=== PATIENT | male | born 1950 | race Caucasian/White ===

== ENCOUNTER → 2021-12-07 12:59 | Outpatient (CLI) | payer MEDICARE, SELFPAY ==
--- NOTE | 2021-12-07 13:07 | DI.RAD.S_ITS ---
PROCEDURE: XR LUMBAR SPINE MIN 4V INDICATIONS: BACK PAIN TECHNIQUE: 5 views of the lumbar spine were acquired, including bilateral oblique views. COMPARISON: None. FINDINGS: Bones: Mild convex right thoracolumbar scoliosis. Bilateral hip prosthesis present. There is wedge-shaped L1 compression fracture with 50% anterior height loss present. Grade 1 degenerative anterior spondylolisthesis at L4-5. Diffuse disc space narrowing and facet arthropathy particularly noted in the lower lumbar spine. Soft tissues: Cholelithiasis noted. Nonobstructive bowel gas pattern Oblique images: No pars defects. IMPRESSION: Degenerative disc disease and arthropathy results in thoracolumbar dextroscoliosis. Degenerative grade 1 anterior spondylolisthesis L4-5 L1 compression fracture, uncertain age Approved by: Edmund Gonzáles M.D. on 12/07/2021 at 13:18
== END ==
PROVIDERS: Referring Provider Physical Medicine & Rehabilitation; Visit Provider Physical Medicine & Rehabilitation
DX: M47.816 Spondylosis without myelopathy or radiculopathy, lumbar region (principal); M51.36 Other intervertebral disc degeneration, lumbar region; M51.26 Other intervertebral disc displacement, lumbar region; M96.1 Postlaminectomy syndrome, not elsewhere classified; M41.9 Scoliosis, unspecified; M48.56XA Collapsed vertebra, not elsewhere classified, lumbar region, initial encounter for fracture; M43.16 Spondylolisthesis, lumbar region; M54.9 Dorsalgia, unspecified; Z98.890 Other specified postprocedural states
CPT/HCPCS: 72110; 99214

== ENCOUNTER 2021-12-27 14:04 | Outpatient (CLI) | payer MEDICARE, SELFPAY ==
--- NOTE | 2021-12-27 14:05 | DI.RAD.S_ITS ---
PROCEDURE: PAIN L/SI FACET INJ/BLK 1STL INDICATIONS: SPONDYLOSIS COMPARISON: [facility], CR, XR LUMBAR SPINE MIN 4V, 12/07/2021, 13:20. FINDINGS: Fluoroscopic spot filming was performed to verify placement of spinal needles on the left at the L4-L5 and L5-S1 levels, as labeled on the films. Appropriate location of the needle tips was confirmed by injection of iodinated contrast. IMPRESSION: Intraprocedural examination demonstrating appropriate positions of the needles. Dictated by: Ra Jamil M.D. on 12/27/2021 at 15:02 Approved by: Ra Jamil M.D. on 12/27/2021 at 15:03
[2021-12-27 14:18] VITALS: BP 172/71; PULSE 60; RESP 16; TEMP 36.8; O2SAT 99
[2021-12-27 14:57] VITALS: BP 179/86; PULSE 65; RESP 16; O2SAT 99
[2021-12-27 15:02] VITALS: BP 176/82; PULSE 61; RESP 15; O2SAT 100
[2021-12-27] MEDS: IOPAMIDOL 15 ML VIAL 3 ML INJ (15:03)
[2021-12-27] MEDS: BETAMETHASONE 30 MG/5 ML MDV 12 MG INJ (15:03)
[2021-12-27] MEDS: BUPIVACAINE 0.5% MDV 5 ML SUBCUT (15:04)
[2021-12-27 15:06] VITALS: BP 180/76; PULSE 76; RESP 16; O2SAT 100
--- NOTE | 2021-12-27 15:09 | PM.PROC.IR.1 ---
Date/Time/Diagnoses Date of procedure: 12/27/21 Time of procedure: 15:09 Pre-procedure diagnosis: 1. FACET ARTHROPATHY, 2. AXIAL LBP, 3. MULTILEVEL DDD Post-procedure diagnosis: same Procedure Notes Procedure: 1. FLUOROSCOPICALLY GUIDED CONTRAST CONTROLLED FACET JOINT INJECTIONS LEFT L4/5, L5/S1 Indications: Reji is referred by Dr. Mcdaniels for treatment of Axial LBP Physician: Brayan Ramos Total Fluoroscopy time (seconds): 9 Total sedation minutes: 0 Complications: none Procedure in detail & Post-procedure care: FINDINGS Multilevel Facet Arthropathy with Clinically significant axial LBP DESCRIPTION OF PROCEDURE Fluoroscopically guided, contrast-controlled left L4/5, L5/S1 facet joint injections. Following review of allergy and review of potential side effects and complications, including, but not necessarily limited to, infection, allergic reaction, local tissue breakdown, stroke, temporary or permanent nerve injury, paralysis, and possible , the patient indicated that the patient understood and agreed to proceed. An informed consent document was signed by the patient, witnessed by a nurse, and placed in the patient's chart. Additionally, other treatment options including medications, modalities, and physical therapy were reviewed with the patient. After review of previous anaesthesic history and IV conscious sedation the patient was deemed safe to proceed with today?s procedure with IV conscious sedation as ASA class II designation. Safety time-out was performed to confirm patient ID, procedure to be performed and site of procedure. IV sedation was deemed unnecessary and thus not administered by the RN after DO order, titrated to patient comfort during the course of the procedure while the patient remained responsive to all verbal commands. In the prone position, following sterile prep and drape of the lumbar region, the posterior aspect of the left L4/5, L5/S1 facet joints were identified fluoroscopically. The skin was anesthetized via a 25-gauge 1.5-inch needle with 1% lidocaine solution into the corresponding facet joints. At this point, a 22-gauge 3.5-inch spinal needle was atraumatically introduced and advanced under fluoroscopic guidance into the corresponding facet joints. Following negative aspiration, injections of approximately 0.2-cc of Isovue 200 confirmed interarticular placement without vascular uptake. Radiological data, including multiple fluoroscopic views of the lumbosacral spine, reveal a spinal needle at the left L4/5, L5/S1 facet joints. Subsequent views show flow of contrast material both superiorly and inferiorly within the joint space without vascular or intrathecal uptake. At this point, a total of 0.5 cc including a mixture of 0.25cc Marcaine and 0.25cc betamethasone was injected without complication into each of the corresponding facet joints. The procedure tolerated the procedure well without signs or symptoms of complications prior to transfer to the recovery area continued monitoring without incident. The patient was then transferred to the recovery area where they were observed for an appropriate period of time after the injection. The patient reported a VAS score of 7 prior to the procedure and a post-procedure VAS of 0. POST OP INSTRUCTIONS The patient was provided a Pain Log to continue to record their response to the target-specific procedure prior to follow-up visit with their referring physician. Additionally, specific post-injection care instructions and a contact number to our office were provided if concerns arise regarding possible complications associated with the procedure are suspected.
[2021-12-27 15:10] VITALS: BP 186/80; PULSE 65; RESP 20; O2SAT 98
== END 2021-12-27 15:17 | disposition home or self-care (01) ==
LOC: RAD 14:04
PROVIDERS: PCP Family Medicine; Referring Provider Physical Medicine & Rehabilitation; Visit Provider Physical Medicine & Rehabilitation
DX: M47.816 Spondylosis without myelopathy or radiculopathy, lumbar region (principal); M47.817 Spondylosis without myelopathy or radiculopathy, lumbosacral region; M51.36 Other intervertebral disc degeneration, lumbar region; M51.37 Other intervertebral disc degeneration, lumbosacral region
CPT/HCPCS: 64493; 64494; J0702

== ENCOUNTER 2022-04-20 09:30 | Outpatient (CLI) | payer MEDICARE, SELFPAY ==
[2022-04-20] VITALS (7 sets, daily range): BP systolic 125–167; BP diastolic 57–75; PULSE 54–60; RESP 13–20; TEMP 36.9; O2SAT 95–98
--- NOTE | 2022-04-20 09:31 | DI.RAD.S_ITS ---
PROCEDURE: PAIN L/SI FACET INJ/BLK 1STL INDICATIONS: SPONDYLSIS COMPARISON: [facility], , PAIN L/SI FACET INJ/BLK 1STL, 12/27/2021, 16:00. FINDINGS: Fluoroscopic spot filming was performed to verify placement of spinal needles on the left at the L4, L5, and S1 levels, as labeled on the films. Appropriate location of the needle tips was confirmed by injection of iodinated contrast. IMPRESSION: Intraprocedural examination demonstrating appropriate positions of the needles. Dictated by: Ra Jamil M.D. on 04/20/2022 at 13:40 Approved by: Ra Jamil M.D. on 04/20/2022 at 13:41
[2022-04-20] MEDS: MIDAZOLAM 2 MG/2 ML VIAL IV (10:53)
[2022-04-20] MEDS: LIDOCAINE 1% 20 ML INJ (11:00)
[2022-04-20] MEDS: IOPAMIDOL 15 ML VIAL 3 ML INJ (11:01)
[2022-04-20] MEDS: BUPIVACAINE 0.5% (PF) 10 ML VIAL 2 ML INJ (11:01)
--- NOTE | 2022-04-20 11:07 | PM.PROC.IR.1 ---
Date/Time/Diagnoses Date of procedure: 04/20/22 Time of procedure: 11:08 Pre-procedure diagnosis: 1. FACET ARTHROPATHY Post-procedure diagnosis: same Procedure Notes Procedure: 1. Left L4, L5 and S1 MB BLOCKS LA Indications: Reji is referred by Dr. Mcdaniels for treatment of Left Axial LBP. Physician: Brayan Ramos Total Fluoroscopy time (seconds): 6 Total sedation minutes: 9 Complications: none Procedure in detail & Post-procedure care: DESCRIPTION OF PROCEDURE Fluoroscopically guided, contrast-controlled left L4, L5 and S1 medial branch blocks with 0.5cc of 0.5% Marcaine. Following review of allergy and review of potential side effects and complications, including, but not necessarily limited to, infection, allergic reaction, local tissue breakdown, nerve injury, paralysis, stroke and possible , the patient indicated that the patient understood and agreed to proceed. An informed consent document was signed by the patient, witnessed by a nurse, and placed in the patient's chart. After review of previous anaesthesic history and IV conscious sedation the patient was deemed safe to proceed with today?s procedure with IV conscious sedation as ASA class II designation. Safety time-out was performed to confirm patient ID, procedure to be performed and site of procedure. IV sedation was accomplished with a combination of 2mg of Versed was administered by the RN after DO order, titrated to patient comfort during the course of the procedure while the patient remained responsive to all verbal commands. In the prone position, following sterile prep and drape of the lumbar region, the left L4, L5 and S1 anatomical location of the medial branch of the dorsal ramus was identified fluoroscopically. Subsequently an anesthetic skin wheal using 1% lidocaine solution was initiated at each of the anatomical spots. Subsequently then a 22-gauge 3.5-inch spinal needle was atraumatically introduced and advanced under fluoroscopic guidance at each of the corresponding sites at the left L4, L5 and S1 MB. After negative aspiration, 0.2cc of Isovue 200 was injected, confirming placement without vascular or intrathecal uptake. Subsequently then 0.5cc of 0.5% Marcaine solution was injected at each of the corresponding sites at the left L4, L5 and S1 medial branch locations. The patient tolerated the procedure well without signs or symptoms of complications. The patient tolerated the procedure well without signs or symptoms of complications prior to transfer to the recovery area continued monitoring without incident. Post-procedure, the patient was monitored initiating provocative activities to measure the amount of relief from block of the facetogenic pain. The patient reported a VAS of 7 prior to the procedure and a post-procedure VAS of 1. It has been a pleasure to assist in the diagnostic and therapeutic care of your patient. POST OP INSTRUCTIONS The patient was provided with a Pain Log to complete over the next several hours and subsequent days prior to the patient's follow up with the ordering physician. If the patient has heat and frost insulator relief to the solution applied, then they may be a candidate for medial branch rhizotomy. The patient is aware, was provided, once again, with a Pain Log and will follow up with the referring physician for review and clinical correlation.
== END 2022-04-20 11:30 | disposition home or self-care (01) ==
PROVIDERS: PCP Family Medicine; Referring Provider Physical Medicine & Rehabilitation; Visit Provider Physical Medicine & Rehabilitation
DX: M47.816 Spondylosis without myelopathy or radiculopathy, lumbar region (principal); M47.817 Spondylosis without myelopathy or radiculopathy, lumbosacral region
CPT/HCPCS: 64493; 64494; J2250

== ENCOUNTER → 2022-07-26 15:25 | Outpatient (CLI) | payer MEDICARE, SELFPAY ==
--- NOTE | 2022-07-26 15:26 | DI.RAD.S_ITS ---
PROCEDURE: XR KNEE RT 3V INDICATIONS: RIGHT KNEE DEGENERATIVE JOINT DISEASE TECHNIQUE: 3 views of the knee were acquired. COMPARISON: None. FINDINGS: Bones: No fractures or dislocations. No suspicious bony lesions. Mild tricompartmental osteoarthritis. Soft tissues: Moderate joint effusion is suspected. There is a corticated ossicle adjacent to the lateral femoral condyle. IMPRESSION: 1. A corticated ossicle adjacent to the lateral femoral condyle, likely sequelae of old injury. 2. Mild tricompartmental osteoarthritis. 3. Moderate knee joint effusion. Dictated by: Merlene Lynn M.D. on 07/26/2022 at 17:02 Approved by: Merlene Lynn M.D. on 07/26/2022 at 17:04
== END ==
PROVIDERS: PCP Family Medicine; Referring Provider Physical Medicine & Rehabilitation; Visit Provider Physical Medicine & Rehabilitation
DX: M17.11 Unilateral primary osteoarthritis, right knee (principal); M25.461 Effusion, right knee; M41.26 Other idiopathic scoliosis, lumbar region; M96.1 Postlaminectomy syndrome, not elsewhere classified; M47.816 Spondylosis without myelopathy or radiculopathy, lumbar region; H91.93 Unspecified hearing loss, bilateral; Z98.890 Other specified postprocedural states
CPT/HCPCS: 73562; 99214

== ENCOUNTER 2022-10-31 15:00 | Outpatient (CLI) | payer MEDICARE, SELFPAY ==
[2022-10-31] VITALS (9 sets, daily range): BP systolic 105–191; BP diastolic 56–79; PULSE 51–64; RESP 16–20; TEMP 36.5; O2SAT 96–99
--- NOTE | 2022-10-31 15:02 | DI.RAD.S_ITS ---
PROCEDURE: PAIN L/S TRANSFORAMINAL INJECT INDICATIONS: SPONDYLOSIS COMPARISON: None. FINDINGS: Fluoroscopic spot filming was performed to verify placement of spinal needles at the right L4-L5 neural foramen level(s), as labeled on the films. Appropriate location(s) of the needle tip(s) was confirmed by injection of iodinated contrast. IMPRESSION: Access needle at the right L4-L5 neural foramen for transforaminal epidural steroid injection. Dictated by: Callie De Jesus MD, PhD on 10/31/2022 at 16:27 Approved by: Callei De Jesus MD, PhD on 10/31/2022 at 16:27
[2022-10-31] MEDS: MIDAZOLAM 2 MG/2 ML VIAL IV (15:57)
[2022-10-31] MEDS: DEXAMETHASONE 10 MG/ML VIAL INJ (16:02)
[2022-10-31] MEDS: IOPAMIDOL 15 ML VIAL 3 ML INJ (16:02)
[2022-10-31] MEDS: BETAMETHASONE 30 MG/5 ML MDV 6 MG INJ (16:02)
--- NOTE | 2022-10-31 16:16 | P.PCN_ITS ---
Date/Time/Diagnoses Date of procedure: 10/31/22 Time of procedure: 16:16 Pre-procedure diagnosis: 1. FORAMINAL STENOSIS WITH LE SYMPTOMS Post-procedure diagnosis: same Procedure Notes Procedure: 1. FLUOROSCOPICALLY GUIDED CONTRAST CONTROLLED TRANSFORAMINAL EPIDURAL STEROID INJECTION - RIGHT L4/5 TFESI Indications: Reji is referred by Dr. Mcdaniels for treatment of Foraminal Stenosis with Right LE Symptoms Physician: Brayan Ramos Total Fluoroscopy time (seconds): 8 Total sedation minutes: 15 Complications: none Procedure in detail & Post-procedure care: FINDINGS Foraminal Nerve Root Compression secondary to disc disease and facet hypertrophy DESCRIPTION OF PROCEDURE Following review of allergy and review of potential side effects and complications, including, but not necessarily limited to, infection, allergic reaction, local tissue breakdown, stroke, temporary or permanent nerve injury, paralysis, and possible , the patient indicated that the patient understood and agreed to proceed. An informed consent document was signed by the patient, witnessed by a nurse, and placed in the patient's chart. Additionally, other treatment options including medications, modalities, and physical therapy were reviewed with the patient. After review of previous anaesthesic history and IV conscious sedation the patient was deemed safe to proceed with today?s procedure with IV conscious sedation as ASA class II designation. Safety time-out was performed to confirm patient ID, procedure to be performed and site of procedure. IV sedation was accomplished with a combination of 2mg of Versed was administered by the RN after DO order, titrated to patient comfort during the course of the procedure while the patient remained responsive to all verbal commands In the prone position following sterile prep and drape of the lumbar region, the right L4/5 posterior neuroforamen was identified fluoroscopically. The skin was anesthetized via a 25-gauge 1.5-inch needle with 1% lidocaine solution. At this point, a 25-gauge 3.5-inch spinal needle was atraumatically introduced and advanced under fluoroscopic guidance through the posterior right L4/5 neuroforamen to approximately the anterior aspect of the canal. Depth was confirmed on lateral view. Following negative aspiration, injection of approximately 1.5cc of Isovue 200 under live fluoroscopy in the AP view con firmed excellent flow along the nerve root, into the epidural space without vascular or intrathecal uptake observed Radiological data, including multiple fluoroscopic views of the lumbosacral spine, reveal a spinal needle at the right L4/5 posterior neuroforamen. Subsequent views show flow of contrast material flowing superiorly and inferiorly along the nerve root confirming epidural flow. Subsequently, a test dose of 1.5 cc of 1% lidocaine solution was administered and patient was observed for two minutes for signs or symptoms of complications, including abdominal pain, shortness of breath, bilateral upper or lower extremity weakness, nausea and vomiting, prior to steroid injection. At this point, a total of 2cc or 10mg of dexamethasone and 6mg of betamethasone was injected without incident. The procedure tolerated the procedure well without signs or symptoms of complications prior to transfer to the recovery area continued monitoring without incident. The patient was then transferred to the recovery area where they were observed for an appropriate time after the injection. The patient reported a VAS score of 7 prior to the procedure and a post- procedure VAS of 1. POST OP INSTRUCTIONS The patient was provided a Pain Log to continue to record their response to the target-specific procedure prior to follow-up visit with their referring p hysician. Additionally, specific post-injection care instructions and a contact number to our office were provided if concerns arise regarding possible complications associated with the procedure are suspected.
== END 2022-10-31 16:35 | disposition home or self-care (01) ==
PROVIDERS: PCP Family Medicine; Referring Provider Physical Medicine & Rehabilitation; Visit Provider Physical Medicine & Rehabilitation
DX: M48.061 Spinal stenosis, lumbar region without neurogenic claudication (principal); M51.16 Intervertebral disc disorders with radiculopathy, lumbar region; M47.26 Other spondylosis with radiculopathy, lumbar region
CPT/HCPCS: 64483; 99152; J0702; J1100; J2250

== ENCOUNTER 2023-02-08 08:15 | Outpatient (CLI) | payer MEDICARE, SELFPAY ==
[2023-02-08] VITALS (8 sets, daily range): BP systolic 132–172; BP diastolic 62–77; PULSE 52–60; RESP 12–16; TEMP 36.2; O2SAT 96–99
--- NOTE | 2023-02-08 08:45 | DI.RAD.S_ITS ---
PROCEDURE: PAIN L/SI FACET INJ/BLK 1STL INDICATIONS: LUMBAR ARTHROPATHY COMPARISON: [facility], , PAIN L/SI FACET INJ/BLK 1STL, 04/20/2022, 11:56. FINDINGS: Fluoroscopic spot filming was performed to verify placement of spinal needles at the left L4, L5 and S1 level(s), as labeled on the films. Appropriate location(s) of the needle tip(s) was confirmed by injection of iodinated contrast. IMPRESSION: Intra procedural examination demonstrating appropriate positions of the needles. Dictated by: Fredi Gudino M.D. on 02/08/2023 at 10:02 Approved by: Fredi Gudino M.D. on 02/08/2023 at 10:03
[2023-02-08] MEDS: MIDAZOLAM 2 MG/2 ML VIAL IV (09:10)
[2023-02-08] MEDS: iopamidoL 15 ML VIAL 3 ML INJ (09:14)
[2023-02-08] MEDS: LIDOCAINE 2% INJ SDV 5ML 5 ML INJ (09:15)
--- NOTE | 2023-02-08 09:24 | PM.PROC.IR.1 ---
Date/Time/Diagnoses Date of procedure: 02/08/23 Time of procedure: 09:24 Pre-procedure diagnosis: FACET ARTHROPATHY Post-procedure diagnosis: same Procedure Notes Procedure: 1. Left L4, L5 and S1 MB BLOCKS SA Indications: Reji is referred by Dr. Mcdaniels for treatment of Left Axial LBP. Physician: Brayan Ramos Total Fluoroscopy time (seconds): 8 Total sedation minutes: 10 Complications: none Procedure in detail & Post-procedure care: DESCRIPTION OF PROCEDURE Fluoroscopically guided, contrast-controlled left L4, L5 and S1 medial branch blocks with 0.5cc of 2% Lidocaine. Following review of allergy and review of potential side effects and complications, including, but not necessarily limited to, infection, allergic reaction, local tissue breakdown, nerve injury, paralysis, stroke and possible , the patient indicated that the patient understood and agreed to proceed. An informed consent document was signed by the patient, witnessed by a nurse, and placed in the patient's chart. After review of previous anaesthesic history and IV conscious sedation the patient was deemed safe to proceed with today?s procedure with IV conscious sedation as ASA class II designation. Safety time-out was performed to confirm patient ID, procedure to be performed and site of procedure. IV sedation was accomplished with a combination of 2mg of Versed was administered by the RN after DO order, titrated to patient comfort during the course of the procedure while the patient remained responsive to all verbal commands. In the prone position, following sterile prep and drape of the lumbar region, the left L4, L5 and S1 anatomical location of the medial branch of the dorsal ramus was identified fluoroscopically. Subsequently an anesthetic skin wheal using 1% lidocaine solution was initiated at each of the anatomical spots. Subsequently then a 22-gauge 3.5-inch spinal needle was atraumatically introduced and advanced under fluoroscopic guidance at each of the corresponding sites at the left L4, L5 and S1 MB. After negative aspiration, 0.2cc of Isovue 200 was injected, confirming placement without vascular or intrathecal uptake. Subsequently then 0.5cc of 2% Lidocaine solution was injected at each of the corresponding sites at the left L4, L5 and S1 medial branch locations. The patient tolerated the procedure well without signs or symptoms of complications. The patient tolerated the procedure well without signs or symptoms of complications prior to transfer to the recovery area continued monitoring without incident. Post-procedure, the patient was monitored initiating provocative activities to measure the amount of relief from block of the facetogenic pain. The patient reported a VAS of 7 prior to the procedure and a post-procedure VAS of 1. It has been a pleasure to assist in the diagnostic and therapeutic care of your patient. POST OP INSTRUCTIONS The patient was provided with a Pain Log to complete over the next several hours and subsequent days prior to the patient's follow up with the ordering physician. If the patient has metal mixer relief to the solution applied, then they may be a candidate for medial branch rhizotomy. The patient is aware, was provided, once again, with a Pain Log and will follow up with the referring physician for review and clinical correlation.
== END 2023-02-08 09:40 | disposition home or self-care (01) ==
LOC: RAD 08:16
PROVIDERS: PCP Family Medicine; Referring Provider Physical Medicine & Rehabilitation; Visit Provider Physical Medicine & Rehabilitation
DX: M47.816 Spondylosis without myelopathy or radiculopathy, lumbar region (principal); M47.817 Spondylosis without myelopathy or radiculopathy, lumbosacral region
CPT/HCPCS: 64493; 64494; 99152; J2250

== ENCOUNTER 2023-04-03 07:23 | Outpatient (CLI) | payer MEDICARE, SELFPAY ==
[2023-04-03] VITALS (10 sets, daily range): BP systolic 112–153; BP diastolic 54–67; PULSE 53–60; RESP 12–40; TEMP 36.6; O2SAT 95–99
--- NOTE | 2023-04-03 08:00 | DI.RAD.S_ITS ---
PROCEDURE: PAIN L/S MED/LAT N RFA INDICATIONS: SPONDYLOSIS COMPARISON: None. FINDINGS: Fluoroscopic spot filming was performed to verify placement of spinal needles at the left L4, L5 and S1 level(s), as labeled on the films. Appropriate location(s) of the needle tip(s) was confirmed by injection of iodinated contrast. IMPRESSION: Fluoro guidance was provided intraoperatively for left-sided L4, L5 and S1 medial branch block performed by the ordering physician. Dictated by: Edmundo Up M.D. on 04/03/2023 at 10:27 Approved by: Edmundo Up M.D. on 04/03/2023 at 10:27
[2023-04-03] MEDS: MIDAZOLAM 2 MG/2 ML VIAL IV (08:04)
[2023-04-03] MEDS: LIDOCAINE 1% 20 ML 5 ML INJ (08:14)
[2023-04-03] MEDS: BUPIVACAINE 0.5% (PF) 10 ML VIAL 5 ML INJ (08:14)
--- NOTE | 2023-04-03 08:40 | P.PCN_ITS ---
Date/Time/Diagnoses Date of procedure: 04/03/23 Time of procedure: 08:40 Pre-procedure diagnosis: 1. RECALCITRANT FACET ARTHROPATHY Post-procedure diagnosis: same Procedure Notes Procedure: 1. LEFT L4 AND L5 MEDIAL BRANCH RADIOFREQUENCY NEUROTOMY AND LEFT S1 DORSAL RAMUS RADIOFREQUENCY NEUROTOMY, Indications: Reji is referred by Dr. Mcdnaiels for treatment of facet arthropathy. Physician: Brayan Ramos Total Fluoroscopy time (seconds): 10 Total sedation minutes: 29 Complications: none Procedure in detail & Post-procedure care: DESCRIPTION OF PROCEDURE Left L4 and L5 medial branch radiofrequency neurotomy and left S1 dorsal ramus branch radiofrequency neurotomy under fluoroscopy with conscious sedation. The patient is well known to this clinic having undergone previous facet injections with good but temporary relief. The patient has experienced appropriate, concordant relief with previous facet and median branch blocks but the patient's pain has been recalcitrant to further conservative measures. Therefore, based upon the patient's relief and persistent symptoms, the patient is considered an appropriate candidate for facet rhizotomy. All of the patient's questions regarding the risks versus benefits of the procedure, including, but not limited to, bleeding, infection, temporary as well as lasting nerve injury, paralysis, stroke, and , as well treatment alternatives were answered to satisfaction. After obtaining informed consent, denial of pertinent drug allergies, as well as being made aware of the potential risks of bleeding, infection, spinal cord trauma, paralysis, temporary and permanent nerve damage, seizure, stroke, and possible , the patient was brought to the fluoroscopy suite and positioned prone on the fluoroscopy table. The lumbar region was prepped with Betadine and covered with a fenestrated drape in the usual sterile fashion. Appropriate monitors applied including pulse oximeter, pulse, and blood pressure for regular monitoring throughout the procedure. IV sedation was accomplished with a combination of 2mg of Versed titrated to patient comfort during the course of the procedure while the patient remained responsive to all verbal commands. After local infiltration using 1% lidocaine, under fluoroscopic guidance, a 10- cm RF insulated needle with a 10-mm active tip was positioned parallel to the junction of the left sacral ala and the superior articulating process where the S1 dorsal ramus resides. Needle placement was confirmed with sensory stimulation at 50 Hz, with motor stimulation of .5v on the left which produced local stimulation without radicular component. The stimulation was then increased to 2v with, once again, only local multifidus stimulation without radicular component. This was then followed by two discreet lesions performed at 80 degrees Celsius for 90 seconds each. The needle was then removed and the identical procedure was performed along the length of the left L5 medial branch with motor stimulation at .7v on the left. The identical procedure was once again performed along the length of the left L4 medial branch with motor stimulation of .5v on the left. The patient tolerated the procedure well without signs or symptoms of complications prior to transfer to the recovery area continued monitoring without incident. The patient was then transferred to the recovery area where they were observed for an appropriate period of time after the injection. The patient was then transferred to the recovery area where they were observed for an appropriate period of time after the injection. The patient reported a VAS score of 9 prior to the procedure and a post- procedure VAS of 0. POST OP INSTRUCTIONS The patient was provided a Pain Log to continue to record the patient's response to the target-specific procedure prior to the patient's follow-up visit with the referring physician. Additionally, specific post-injection care instructions and a contact number to our office were provided if concerns arise regarding possible complications associated with the procedure are suspected.
--- NOTE | 2023-04-05 14:01 | PC.NURSE ---
Patient called by this nurse to check in to see how he was doing since his RFA on 04/03/23. No answer. This nurse left a message reminding him to call the clinic's phone number that is on the green discharge sheet if he has any questions or concerns.
== END 2023-04-03 08:47 | disposition home or self-care (01) ==
PROVIDERS: PCP Family Medicine; Referring Provider Physical Medicine & Rehabilitation; Visit Provider Physical Medicine & Rehabilitation
DX: M47.816 Spondylosis without myelopathy or radiculopathy, lumbar region (principal); M47.817 Spondylosis without myelopathy or radiculopathy, lumbosacral region
CPT/HCPCS: 64635; 64636; 99152; 99153; J2250

== ENCOUNTER 2023-06-28 09:55 | Outpatient (CLI) | payer MEDICARE, SELFPAY ==
[2023-06-28] VITALS (9 sets, daily range): BP systolic 112–168; BP diastolic 59–77; PULSE 54–60; RESP 14–21; O2SAT 95–98
--- NOTE | 2023-06-28 10:45 | DI.RAD.S_ITS ---
PROCEDURE: PAIN L/S TRANSFORAMINAL INJECT INDICATIONS: Right L4-5 transforaminal JUSTA COMPARISON: [facility], , PAIN L/S TRANSFORAMINAL INJECT, 10/31/2022, 16:02. FINDINGS: Fluoroscopic spot filming was performed to verify placement of spinal needles at the right L4-L5 level(s), as labeled on the films. Appropriate location(s) of the needle tip(s) was confirmed by injection of iodinated contrast. IMPRESSION: Intraoperative guidance provided. Dictated by: Donovan Hess M.D. on 06/28/2023 at 12:50 Approved by: Donovan Hess M.D. on 06/28/2023 at 12:51
[2023-06-28] MEDS: MIDAZOLAM 2 MG/2 ML VIAL IV (11:27)
[2023-06-28] MEDS: iopamidoL 15 ML VIAL 3 ML INJ (11:31)
[2023-06-28] MEDS: DEXAMETHASONE 10 MG/ML VIAL INJ (11:31)
[2023-06-28] MEDS: BETAMETHASONE 30 MG/5 ML MDV 6 MG INJ (11:31)
[2023-06-28] MEDS: BUPIVACAINE 0.25% (PF) VIAL 1 ML INJ (11:32)
--- NOTE | 2023-06-28 11:48 | P.PCN_ITS ---
Date/Time/Diagnoses Date of procedure: 06/28/23 Time of procedure: 11:48 Pre-procedure diagnosis: 1. FORAMINAL STENOSIS WITH LE SYMPTOMS Post-procedure diagnosis: same Procedure Notes Procedure: 1. FLUOROSCOPICALLY GUIDED CONTRAST CONTROLLED TRANSFORAMINAL EPIDURAL STEROID INJECTION - RIGHT L4/5 TFESI Indications: Reji is referred by Dr. Mcdaniels for treatment of Foraminal Stenosis with Right LE Symptoms Physician: Brayan Ramos Total Fluoroscopy time (seconds): 12 Total sedation minutes: 15 Complications: none Procedure in detail & Post-procedure care: FINDINGS Foraminal Nerve Root Compression secondary to disc disease and facet hypertrophy DESCRIPTION OF PROCEDURE Following review of allergy and review of potential side effects and complications, including, but not necessarily limited to, infection, allergic reaction, local tissue breakdown, stroke, temporary or permanent nerve injury, paralysis, and possible , the patient indicated that the patient understood and agreed to proceed. An informed consent document was signed by the patient, witnessed by a nurse, and placed in the patient's chart. Additionally, other treatment options including medications, modalities, and physical therapy were reviewed with the patient. After review of previous anaesthesic history and IV conscious sedation the patient was deemed safe to proceed with today?s procedure with IV conscious sedation as ASA class II designation. Safety time-out was performed to confirm patient ID, procedure to be performed and site of procedure. IV sedation was accomplished with a combination of 2mg of Versed was administered by the RN after DO order, titrated to patient comfort during the course of the procedure while the patient remained responsive to all verbal commands In the prone position following sterile prep and drape of the lumbar region, the right L4/5 posterior neuroforamen was identified fluoroscopically. The skin was anesthetized via a 25-gauge 1.5-inch needle with 1% lidocaine solution. At this point, a 25-gauge 3.5-inch spinal needle was atraumatically introduced and advanced under fluoroscopic guidance through the posterior right L4/5 neuroforamen to approximately the anterior aspect of the canal. Depth was confirmed on lateral view. Following negative aspiration, injection of approximately 1.5cc of Isovue 200 under live fluoroscopy in the AP view co nfirmed excellent flow along the nerve root, into the epidural space without vascular or intrathecal uptake observed Radiological data, including multiple fluoroscopic views of the lumbosacral spin e, reveal a spinal needle at the right L4/5 posterior neuroforamen. Subsequent views show flow of contrast material flowing superiorly and inferiorly along the nerve root confirming epidural flow. Subsequently, a test dose of 1.5 cc of 1% lidocaine solution was administered and patient was observed for two minutes for signs or symptoms of complications, including abdominal pain, shortness of breath, bilateral upper or lower extremity weakness, nausea and vomiting, prior to steroid injection. At this point, a total of 2cc or 10mg of dexamethasone and 6mg of betamethasone was injected without incident. The procedure tolerated the procedure well without signs or symptoms of complications prior to transfer to the recovery area continued monitoring without incident. The patient was then transferred to the recovery area where they were observed for an appropriate time after the injection. The patient reported a VAS score of 7 prior to the procedure and a post- procedure VAS of 1. POST OP INSTRUCTIONS The patient was provided a Pain Log to continue to record their response to the target-specific procedure prior to follow-up visit with their referring physician. Additionally, specific post-injection care instructions and a contact number to our office were provided if concerns arise regarding possible complications associated with the procedure are suspected.
== END 2023-06-28 12:00 | disposition home or self-care (01) ==
PROVIDERS: PCP Family Medicine; Referring Provider Physical Medicine & Rehabilitation; Visit Provider Physical Medicine & Rehabilitation
DX: M51.16 Intervertebral disc disorders with radiculopathy, lumbar region (principal); M48.061 Spinal stenosis, lumbar region without neurogenic claudication; M47.26 Other spondylosis with radiculopathy, lumbar region
CPT/HCPCS: 64483; 99152; J0702; J1100; J2250; J3490

== ENCOUNTER 2023-09-06 15:36 | Outpatient (CLI) | payer MEDICARE, SELFPAY ==
[2023-09-06] VITALS (8 sets, daily range): BP systolic 120–153; BP diastolic 60–74; PULSE 58–66; RESP 15–18; TEMP 36.9; O2SAT 96–99
--- NOTE | 2023-09-06 16:00 | DI.RAD.S_ITS ---
PROCEDURE: PAIN L INTERLAMINAR/CAUDAL INJ INDICATIONS: para Right L4/5 TL JUSTA COMPARISON: None. FINDINGS: Fluoroscopic spot filming was performed to verify placement of spinal needles at the L4-5 level(s), as labeled on the films. Appropriate location(s) of the needle tip(s) was confirmed by injection of iodinated contrast. IMPRESSION: Fluoro guidance was provided intraoperatively for right-sided L4-5 JUSTA performed by ordering physician. Dictated by: Edmundo Up M.D. on 09/07/2023 at 10:18 Approved by: Edmundo Up M.D. on 09/07/2023 at 10:18
[2023-09-06] MEDS: MIDAZOLAM 2 MG/2 ML VIAL IV (16:49)
[2023-09-06] MEDS: DEXAMETHASONE 10 MG/ML VIAL INJ (16:54)
[2023-09-06] MEDS: BETAMETHASONE 30 MG/5 ML MDV 6 MG INJ (16:54)
[2023-09-06] MEDS: BUPIVACAINE 0.25% (PF) VIAL 2 ML INJ (16:54)
[2023-09-06] MEDS: iopamidoL 15 ML VIAL 3 ML INJ (16:54)
--- NOTE | 2023-09-06 17:07 | P.PCN_ITS ---
Date/Time/Diagnoses Date of procedure: 09/06/23 Time of procedure: 17:07 Pre-procedure diagnosis: 1. HNP WITH RADICULAR FEATURES, 2. MULTILEVEL CENTRAL STENOSIS, Post-procedure diagnosis: same Procedure Notes Procedure: 1. FLUOROSCOPICALLY GUIDED CONTRAST CONTROLLED INTERLAMINAR EPIDURAL STEROID INJECTION -L4/5 Indications: Reji is referred by Dr. Mcdaniels for treatment of Bilateral Foraminal Stenosis R>L LE symptoms. Physician: Brayan Ramos Total Fluoroscopy time (seconds): 10 Total sedation minutes: 13 Complications: none Procedure in detail & Post-procedure care: FINDINGS Multilevel Central Spinal Stenosis with Nerve Root Compression DESCRIPTION OF PROCEDURE Fluoroscopically guided, contrast-controlled L4/5 translaminar epidural steroid injection. Following review of allergy and review of potential side effects and complications, including, but not necessarily limited to, infection, allergic reaction, local tissue breakdown, temporary as well as permanent nerve injury, paralysis, stroke and possible , the patient indicated that the patient understood and agreed to proceed. An informed consent document was signed by the patient, witnessed by a nurse, and placed in the patient's chart. Additionally, other treatment options including modalities, medications, and physical therapy were reviewed with the patient. After review of previous anaesthesic history and IV conscious sedation the patient was deemed safe to proceed with today?s procedure with IV conscious sedation as ASA class II designation. Safety time-out was performed to confirm patient ID, procedure to be performed and site of procedure. IV sedation was accomplished with a combination of 2mg of Versed was administered by the RN after DO order, titrated to patient comfort during the course of the procedure while the patient remained responsive to all verbal commands In the prone position, following sterile prep and drape of the lumbar region, the L4/5 translaminar space was identified fluoroscopically. The skin was anesthetized via a 25-gauge, 1.5inch needle with 1% lidocaine solution. At this point, a 22-gauge short bevel spinal needle was atraumatically introduced and advanced under fluoroscopic guidance into the region of the L4/5 translaminar space. Depth was confirmed on lateral view. Radiological data, including multiple fluoroscopic views of the lumbar spine, reveal a spinal needle at the L4/5 translaminar space. Lateral views then show placement of the needle in the epidural space. Subsequent views show contrast material flowing superiorly and inferiorly in the epidural space. No vascular or intrathecal uptake is observed. At this point, using loss of resistance technique with saline and air, the epidural space was entered. This was confirmed following negative aspiration with injection of approximately 1.5cc of Isovue 200, showing excellent epidural flow without vascular or intrathecal uptake. At this point, 1cc of 1% lidocaine solution combined with 2cc or 10mg of dexamethasone and 6mg betamethasone was injected without incident. The patient tolerated the procedure well without signs or symptoms of complications prior to transfer to the recovery area continued monitoring without incident. The patient was then transferred to the recovery area where they were observed for an appropriate period of time after the injection. The patient reported a VAS score of 7 prior to the procedure and a post- procedure VAS of 1. POST OP INSTRUCTIONS The patient was provided a Pain Log to continue to record their response to the target-specific procedure prior to follow-up visit with their referring physician. Additionally, specific post-injection care instructions and a contact number to our office were provided if concerns arise regarding possible complications associated with the procedure are suspected.
== END 2023-09-06 17:27 | disposition home or self-care (01) ==
PROVIDERS: PCP Family Medicine; Referring Provider Physical Medicine & Rehabilitation; Visit Provider Physical Medicine & Rehabilitation
DX: M51.16 Intervertebral disc disorders with radiculopathy, lumbar region (principal); M48.061 Spinal stenosis, lumbar region without neurogenic claudication
CPT/HCPCS: 62323; 99152; J0702; J1100; J2250; J3490